=== PATIENT | male | born 1970 | race Two or more races ===

== ENCOUNTER 2018-12-16 10:55 | Emergency (ER) | payer MEDICAID, MEDICARE ==
[~2018-12-16] VITALS: Ht 182.9 cm; Wt 89.5 kg
--- NOTE | 2018-12-16 11:21 | NUR ---
PT WITH C/O N/V -D SINCE 0200 THIS AM. BP HIGH ON INTAKE 225/110, RETAKEN 167/86. PT STATES PAIN IN RLQ/LLQ. PT WITH HX ESRD, LAST DIALYSIS THURSDAY THIS WEEK ERMD IN TO EVAL PT
[2018-12-16] MEDS ORDERED: SODIUM CHLORIDE FLUSH 10ML SYR IVF ONE (11:30)
[2018-12-16] MEDS ORDERED: ONDANSETRON 2MG/ML, 2ML IVPush ONE (11:30)
[2018-12-16] MEDS ORDERED: HYDROmorphone 1 MG/ML, 1ML VIAL ONE ×2 (11:58→13:19)
[2018-12-16] MEDS ORDERED: ONDANSETRON 2MG/ML, 2ML ONE (11:58)
[2018-12-16] MEDS: HYDROmorphone 2 MG/ML, 1ML IVPush PRN ×2 (12:01→13:22)
--- NOTE | 2018-12-16 12:04 | NUR ---
BREAK RN: Patient medicated as ordered and documented, plan of care updated.
[2018-12-16 12:07] LABS: BASOPHILS # (AUTO) 0.02 x10^3/uL (0-0.1); BASOPHILS % (AUTO) 1 % (0-1); EOSINOPHILS # (AUTO) 0.27 x10^3/uL (0-0.4); EOSINOPHILS % (AUTO) 6 % (1-7); LYMPHOCYTES # (AUTO) 0.79 x10^3/uL (1-3.4); LYMPHOCYTES % (AUTO) 17 % (22-44); MD NO; MEAN CORPUSCULAR HEMOGLOBIN 26.9 pg (27.5-34.5); MEAN CORPUSCULAR HGB CONC 32.7 g/dL (33.2-36.2); MEAN CORPUSCULAR VOLUME 82.3 fL (81-97); MEAN PLATELET VOLUME 7.7 fL (7.4-10.4); MONOCYTES # (AUTO) 0.27 x10^3/uL (0.2-0.8); MONOCYTES % (AUTO) 6 % (2-9); NEUTROPHILS # (AUTO) 3.41 x10^3/uL (1.8-6.8); NEUTROPHILS % (AUTO) 72 % (42-75); PLATELET COUNT 142 x10^3/uL (130-400); RED BLOOD COUNT 3.56 x10^6/uL (4.38-5.82); RED CELL DISTRIBUTION WIDTH 20.6 % (9.4-14.8)
[2018-12-16 12:20] LABS: ALANINE AMINOTRANSFERASE 15 U/L (12-78); ALBUMIN 3.4 g/dL (3.4-5.0); ANION GAP 10 mmol/L (5-15); CALCIUM 8.4 mg/dL (8.5-10.1); CHLORIDE 107 mmol/L (98-107)
[2018-12-16 12:23] LABS: ALKALINE PHOSPHATASE 145 U/L (45-117); BILIRUBIN,TOTAL 0.7 mg/dL (0.2-1.0); TOTAL PROTEIN 7.4 g/dL (6.4-8.2)
--- NOTE | 2018-12-16 13:28 | NUR ---
PT MEDICATED SECOND TIME FOR PAIN. PT STATES HE IS ANURIC, UNABLE TO OBTAIN A URINE SAMPLE, ERMD UPDATED. PT WITH NO OTHER NEEDS AT THIS TIME
--- NOTE | 2018-12-16 14:17 | NUR ---
ERMD IN TO UPDATE PT ON POC. NO NEEDS REPORTED AT THIS TIME
--- NOTE | 2018-12-16 15:19 | NUR ---
AWAITING ANIL HERNANDES NOTED
[2018-12-16 16:09] VITALS: BP 180/105
--- NOTE | 2018-12-16 16:19 | NUR ---
JAYRO RN: DISCHARGED PATIENT. PROVIDER AWARE OF VS AT TIME OF DC
== END 2018-12-16 16:21 | disposition home or self-care (01) ==
LOC: ED 16:05
DX: I12.0 Hypertensive chronic kidney disease with stage 5 chronic kidney disease or end stage renal disease (principal); E11.22 Type 2 diabetes mellitus with diabetic chronic kidney disease; N18.6 End stage renal disease; I25.2 Old myocardial infarction; Z94.0 Kidney transplant status; Z99.2 Dependence on renal dialysis
CPT/HCPCS: 36415; 71045; 74176; 80053; 83605; 83690; 85025; 87040; 93005; 96374; 96375; 96376; 99284; J1170; J2405

== ENCOUNTER 2019-10-15 12:14 | Emergency (ER) | payer OTHER, MEDICAID ==
[~2019-10-15] VITALS: Ht 182.9 cm; Wt 83.0 kg
[2019-10-15 12:25] VITALS: BP 190/108
[2019-10-15] MEDS ORDERED: ONDANSETRON ODT 4 MG PO ONE (13:30)
[2019-10-15] MEDS ORDERED: SODIUM CHLORIDE FLUSH 10ML SYR IVF ONE (13:30)
== END 2019-10-15 13:34 | disposition left against medical advice (07) ==
LOC: ED 13:23
DX: R10.84 Generalized abdominal pain (principal); R11.2 Nausea with vomiting, unspecified; I25.2 Old myocardial infarction; E11.9 Type 2 diabetes mellitus without complications; I10 Essential (primary) hypertension; Z99.2 Dependence on renal dialysis
CPT/HCPCS: 99281

== ENCOUNTER 2019-10-16 00:06 | Emergency (ER) | payer OTHER, MEDICAID ==
[~2019-10-16] VITALS: Ht 182.9 cm; Wt 85.3 kg
[2019-10-16 00:08] VITALS: BP 226/134
[2019-10-16] MEDS ORDERED: ACETAMINOPHEN 500 MG TABLET ONE (00:45)
[2019-10-16] MEDS ORDERED: ACETAMINOPHEN 500 MG TABLET PO ONE (01:00)
--- NOTE | 2019-10-16 01:28 | NUR ---
PT MEDICATED PER APR FOR HTN REFUSED TYLENOL STS ALREADY TOOK 3 AND THEY DO NOT HELP.
[2019-10-16 01:33] LABS: MEAN CORPUSCULAR HEMOGLOBIN 28.8 pg (27.5-34.5); MEAN CORPUSCULAR HGB CONC 33.2 g/dL (33.2-36.2); MEAN CORPUSCULAR VOLUME 86.6 fL (81-97); PLATELET COUNT 185 x10^3/uL (130-400); RED BLOOD COUNT 2.44 x10^6/uL (4.38-5.82)
[2019-10-16 01:35] LABS: ALANINE AMINOTRANSFERASE 8 U/L (12-78); ALBUMIN 3.5 g/dL (3.4-5.0); ANION GAP 10 mmol/L (5-15); CALCIUM 9.5 mg/dL (8.5-10.1); CHLORIDE 111 mmol/L (98-107)
[2019-10-16 01:38] LABS: ALKALINE PHOSPHATASE 115 U/L (45-117); BILIRUBIN,TOTAL 0.7 mg/dL (0.2-1.0); TOTAL PROTEIN 7.8 g/dL (6.4-8.2)
[2019-10-16 01:42] LABS: BASOPHILS # (AUTO) 0.04 x10^3/uL (0-0.1); BASOPHILS % (AUTO) 1 % (0-1); EOSINOPHILS # (AUTO) 0.34 x10^3/uL (0-0.4); EOSINOPHILS % (AUTO) 6 % (1-7); LYMPHOCYTES # (AUTO) 0.73 x10^3/uL (1-3.4); LYMPHOCYTES % (AUTO) 13 % (22-44); MD MORPH REVIEW ONLY; MONOCYTES # (AUTO) 0.34 x10^3/uL (0.2-0.8); MONOCYTES % (AUTO) 6 % (2-9); NEUTROPHILS # (AUTO) 4.29 x10^3/uL (1.8-6.8); NEUTROPHILS % (AUTO) 75 % (42-75)
[2019-10-16 01:44] LABS: <PLATELET ESTIMATE> ADEQUATE; ANISOCYTOSIS 1+; MICROCYTOSIS 1+; OVALOCYTES 1+
[2019-10-16 01:45] LABS: SMALL PLATELETS 1+
--- NOTE | 2019-10-16 02:15 | NUR ---
PT REMOVING MONITORING STS GOING HOME AND WE CAN'T KEEP HIM. PT SHOUTING AT RN THAT HE WANTS [employer] AND TO BE WHEELED OUT. PT TOLD SINCE HE IS LEAVING AMA HE NEEDS TO BE ABLE TO WALK. PT SHOUTING THAT HE WILL FALL INTENTIONALLY AND HOLD RN RESPONSIBLE FOR THIS. SECURITY CALLED TO ASSIST
[2019-10-16] MEDS ORDERED: SODIUM POLY SULFONATE UDC 15 GM/60 ML PO ONE (02:30)
== END 2019-10-16 02:19 | disposition left against medical advice (07) ==
LOC: ED 01:30
DX: D64.9 Anemia, unspecified (principal); E87.5 Hyperkalemia; I10 Essential (primary) hypertension; I25.2 Old myocardial infarction; E11.9 Type 2 diabetes mellitus without complications; Z90.49 Acquired absence of other specified parts of digestive tract; Z99.2 Dependence on renal dialysis
CPT/HCPCS: 36415; 71045; 74176; 80053; 83690; 85025; 93005; 99285

== ENCOUNTER 2019-10-18 22:36 | Emergency (ER) | payer OTHER, MEDICAID ==
[~2019-10-18] VITALS: Ht 182.9 cm; Wt 84.5 kg
--- NOTE | 2019-10-18 23:20 | NUR ---
PT CAME IN CO OF NAUSEA AND VOMTTING. PT STATES HE GOT DIALYSIS AND ON THURSDAY AND SAYS "I THINK I NEED ANOTHER DIALYSIS TREATMENT". PT RESTING IN GURNEY. WARM BLANKETS PROVIDED.
[2019-10-19 00:02] LABS: BASOPHILS # (AUTO) 0.02 x10^3/uL (0-0.1); BASOPHILS % (AUTO) 0 % (0-1); EOSINOPHILS # (AUTO) 0.41 x10^3/uL (0-0.4); EOSINOPHILS % (AUTO) 7 % (1-7); LYMPHOCYTES # (AUTO) 0.53 x10^3/uL (1-3.4); LYMPHOCYTES % (AUTO) 9 % (22-44); MD NO; MEAN CORPUSCULAR HEMOGLOBIN 28.6 pg (27.5-34.5); MEAN CORPUSCULAR HGB CONC 32.5 g/dL (33.2-36.2); MEAN CORPUSCULAR VOLUME 87.9 fL (81-97); MEAN PLATELET VOLUME 6.9 fL (7.4-10.4); MONOCYTES # (AUTO) 0.35 x10^3/uL (0.2-0.8); MONOCYTES % (AUTO) 6 % (2-9); NEUTROPHILS # (AUTO) 4.51 x10^3/uL (1.8-6.8); NEUTROPHILS % (AUTO) 78 % (42-75); PLATELET COUNT 174 x10^3/uL (130-400); RED CELL DISTRIBUTION WIDTH 17.2 % (9.4-14.8)
[2019-10-19 00:08] LABS: ALANINE AMINOTRANSFERASE 7 U/L (12-78); ALBUMIN 3.2 g/dL (3.4-5.0); ANION GAP 9 mmol/L (5-15); CALCIUM 7.6 mg/dL (8.5-10.1); CHLORIDE 102 mmol/L (98-107); CREATININE 9.59 mg/dL (0.7-1.3)
[2019-10-19 00:11] LABS: ALKALINE PHOSPHATASE 116 U/L (45-117); BILIRUBIN,TOTAL 0.8 mg/dL (0.2-1.0); TOTAL PROTEIN 7.4 g/dL (6.4-8.2)
[2019-10-19 00:27] VITALS: BP 138/74
--- NOTE | 2019-10-19 00:28 | NUR ---
PT RESTING IN [facility]. VSS. NAD.
== END 2019-10-19 01:10 | disposition home or self-care (01) ==
LOC: ED 10-19 00:30
DX: I12.0 Hypertensive chronic kidney disease with stage 5 chronic kidney disease or end stage renal disease (principal); N18.6 End stage renal disease; K59.00 Constipation, unspecified; R10.84 Generalized abdominal pain; R11.2 Nausea with vomiting, unspecified; E11.9 Type 2 diabetes mellitus without complications; I25.2 Old myocardial infarction; E87.5 Hyperkalemia; Z72.9 Problem related to lifestyle, unspecified; Z99.2 Dependence on renal dialysis; Z90.49 Acquired absence of other specified parts of digestive tract
CPT/HCPCS: 36415; 74021; 80053; 85025; 93005; 99285